=== PATIENT | female | born 1980 | race Caucasian/White ===

== ENCOUNTER 2017-04-16 16:06 | Emergency (ER) | payer MEDICAID ==
[2017-04-16 16:42] LABS: BASOPHILS 0.3 % (0-2); EOSINOPHILS 0.9 % (0-7); HEMATOCRIT 40.2 % (36.0-48.0); HEMOGLOBIN 13.2 g/dL (12-16); IMMATURE GRANULOCYTES 0.2 % (0-5); LYMPHOCYTES 24.1 % (15-50); MCH 26.8 pg (26.0-34.0); MCHC 32.8 g/dL (31.0-37.0); MCV 81.7 fL (80.0-100.0); MEAN PLATELET VOLUME 10.4 fL (7.4-10.4); MONOCYTES 7.2 % (2-11); NEUTROPHILS 67.3 % (40-80); PLATELET COUNT 229 10x3/uL (130-400); RBC 4.92 10x6/uL (4.00-5.40); RDW 13.4 % (11.5-14.5); WBC 11.6 10x3/uL (4.8-10.8)
[2017-04-16 17:19] LABS: HCG SERUM NEGATIVE (NEGATIVE)
[2017-04-16 20:44] LABS: ALBUMIN 3.8 g/dL (3.4-5.0); ALKALINE PHOSPHATASE 99 U/L (46-116); ALT (SGPT) 25 U/L (10-68); BILIRUBIN - TOTAL 0.23 mg/dL (0.2-1.3); CALC OSMOLALITY 279 mosm/kg (275-300); CALCIUM 8.6 mg/dL (8.5-10.1); CARBON DIOXIDE 21.9 mmol/L (21.0-32.0); CHLORIDE - SERUM 106 mmol/L (98-107); CREATININE - SERUM 0.9 mg/dL (0.6-1.3); GLUCOSE 110 mg/dL (74-106); POTASSIUM - SERUM 3.9 mmol/L (3.5-5.1); SODIUM 140 mmol/L (136-145); UREA NITROGEN 12 mg/dL (7-18); eGFR NON AFRICAN AMERICAN 75 mL/min (90-120)
[2017-04-16 21:41] LABS: APPEARANCE HAZY (CLEAR); BILIRUBIN NEGATIVE (NEGATIVE); COLOR YELLOW (YELLOW); GLUCOSE NEGATIVE (NEGATIVE); KETONE NEGATIVE (NEGATIVE); LEUKOCYTE ESTERASE 1+ (NEGATIVE); NITRITE NEGATIVE (NEGATIVE); PROTEIN TRACE mg/dL (NEGATIVE); UROBILINOGEN NORMAL (NORMAL)
[2017-04-16 21:42] LABS: BACTERIA MODERATE /hpf (NONE SEEN); EPITHELIAL CELLS 0-5 /hpf (0-5); RED CELLS - URINE 25-50 /hpf (0-5)
== END 2017-04-16 23:05 | disposition home or self-care (01) ==
LOC: D.ER 16:06
PROVIDERS: Emergency Medicine; Physician Assistant
DX: R10.31 Right lower quadrant pain (principal); R11.2 Nausea with vomiting, unspecified; N12 Tubulo-interstitial nephritis, not specified as acute or chronic; I10 Essential (primary) hypertension